=== PATIENT | female | born 1995 | race Caucasian/White ===

== ENCOUNTER 2018-07-13 07:34 | Emergency (ER) | payer OTHER ==
[~2018-07-13] VITALS: Ht 167.6 cm; Wt 72.7 kg
[2018-07-13 07:38] VITALS: TEMP 98.7
[2018-07-13] MEDS ORDERED: DOXYCYCLINE 10100 MG PO (08:33)
[2018-07-13 08:52] VITALS: BP 144/77; PULSE 97
[2018-07-13] MEDS ORDERED: VALTREX 50500 MG/TAB PO (08:53)
== END 2018-07-13 08:52 | disposition home or self-care (01) ==
LOC: COL.ER 07:34
DX: N76.0 Acute vaginitis (principal)
CPT/HCPCS: J0696

== ENCOUNTER 2019-04-13 11:47 | Emergency (ER) | payer OTHER ==
[~2019-04-13] VITALS: Ht 167.6 cm; Wt 77.3 kg
[~2019-04-13 11:47] MED LIST: DOXYCYCLINE 10100 MG PO; VALTREX 50500 MG/TAB PO
[2019-04-13 11:55] VITALS: BP 138/72; TEMP 97.6
[2019-04-13] MEDS ORDERED: DOXYCYCLINE 10100 MG PO (12:21)
[2019-04-13 12:35] VITALS: PULSE 62
== END 2019-04-13 12:35 | disposition home or self-care (01) ==
LOC: COL.ER 11:47
DX: N76.4 Abscess of vulva (principal); N76.2 Acute vulvitis